=== PATIENT | female | born 1955 | race Caucasian/White ===

== ENCOUNTER 2024-09-12 11:17 | Outpatient (REF) | payer MEDICARE, SELFPAY ==
[2024-09-12 14:16] LABS: Alanine Aminotransferase 21 U/L (0-31); Albumin Level 4.3 g/dL (3.5-5.0); Alkaline Phosphatase 79 U/L (39-117); Anion Gap 10 (12-20); Aspartate Amino Transferase 21 U/L (5-31); Bilirubin Total 0.4 mg/dL (0.0-1.0); Blood Urea Nitrogen 14 mg/dL (9-16); Calcium 9.6 mg/dL (8.4-10.2); Carbon Dioxide 28 mmol/L (22-29); Chloride 106 mmol/L (96-108); Estimated Glomerular Filt Rate > 60; Glucose Random 86 mg/dL (60-115); Potassium 4.6 mmol/L (3.3-5.1); Sodium 139 mmol/L (135-145)
[2024-09-12 14:33] LABS: TSH reflex Free T4 5.03 uIU/mL (0.32-4.0)
[2024-09-12 15:08] LABS: Free T4 (Free Thyroxine) 0.69 ng/dL (0.71-1.85)
[2024-09-13 03:39] LABS: Immunoglobulin A 113 mg/dL (70-320)
[2024-09-13 21:04] LABS: Transglutaminase IgA <1.0 U/mL
[2024-09-18 11:33] LABS: ANA Pattern 2 Nuclear, Homogeneous; Anti Nuclear Antibody Pattern Nuclear, Speckled; Anti Nuclear Antibody Screen POSITIVE (NEGATIVE)
== END 2024-09-12 11:18 | disposition home or self-care (01) ==
LOC: HO.LAB 11:17
PROVIDERS: PCP Family Medicine; Visit Provider Internal Medicine
DX: R10.9 Unspecified abdominal pain (principal)
CPT/HCPCS: 36415; 80053; 82784; 84439; 84443; 86038; 86039; 86364

== ENCOUNTER 2024-10-17 11:23 | Outpatient (REF) | payer MEDICARE, SELFPAY ==
--- NOTE | ~2024-10-17 | US_ITS ---
CLINICAL HISTORY: ABD PAIN US abdomen complete Comparison: None provided Findings: The pancreas is normal. The visualized aorta and inferior vena cava are normal in caliber. Mild echogenic atherosclerotic disease of the abdominal aorta. The liver is normal in size, right lobe length is 14.6 cm. Normal in echogenicity, no discrete lesion is visualized in the imaged liver. No intrahepatic bile duct dilatation. The common duct is 5 mm in diameter. The gallbladder is normal. Negative sonographic Ann sign. The main portal vein is patent with antegrade flow. The right kidney is normal, 9.5 cm in length. The left kidney is normal, 9.0 cm in length. The spleen is normal, 8.0 cm in length. No free fluid in the abdomen. Impression: 1. No acute or sonographic finding to account for abdominal pain. 2. Atherosclerotic disease of abdominal aorta. This document has been electronically signed by: Mckenna Mooney MD on 10/17/2024 15:50:33
== END 2024-10-17 11:24 | disposition home or self-care (01) ==
LOC: HO.HMGCX 11:23
PROVIDERS: Visit Provider Internal Medicine
DX: R10.9 Unspecified abdominal pain (principal)
CPT/HCPCS: 76700

== ENCOUNTER → 2024-10-17 11:32 | Outpatient (BNV) | payer MEDICARE, SELFPAY | PROVIDERS: Visit Provider Radiology Diagnostic Radiology | DX: I70.0 Atherosclerosis of aorta (principal) | CPT/HCPCS: 76700 ==

== ENCOUNTER 2025-01-03 08:42 | Outpatient (REF) | payer MEDICARE, SELFPAY ==
--- NOTE | ~2025-01-03 | FL_ITS ---
EXAMINATION: XR FLUOROSCOPY UPPER GI WITH AIR CLINICAL INFORMATION: Abdominal pain radiates to back. COMPARISON: None available. TECHNIQUE: Routine upper GI air contrast study was performed in upright and lying position. FINDINGS: Following oral administration of thick barium and effervescent granules is normal propagation bolus from the oral cavity through the pharynx, esophagus into stomach without obstruction, narrowing or stricture. There is no intraluminal filling defect or extrinsic compression. On placing patient supine and prone lying the course, caliber and peristalsis of the stomach is normal. Mild increased gastric secretions are present. There is small gastric erosions seen throughout the stomach especially fundus and the body the stomach. No ulceration visualized. There is mild gastroesophageal reflux without hiatal hernia. FLUOROSCOPY TIME: 1 minute 46 seconds DOSE AREA PRODUCT: 905.2 uGy-m2 (microgray-meter squared) FL/FL upper GI w air IMPRESSION: Increased gastric secretions with gastric erosions suggestive of hyper acidity. Mild gastroesophageal reflux extending to upper esophagus without hiatal hernia. Electronically signed by: Sebastien Brady MD 01/03/2025 10:15 AM EDT
== END 2025-01-03 08:43 | disposition home or self-care (01) ==
LOC: HO.XRAY 08:42
PROVIDERS: Visit Provider Internal Medicine
DX: R10.9 Unspecified abdominal pain (principal)
CPT/HCPCS: 74246

== ENCOUNTER → 2025-01-03 08:44 | Outpatient (BNV) | payer MEDICARE, SELFPAY | PROVIDERS: Visit Provider Radiology Diagnostic Radiology | DX: E16.4 Increased secretion of gastrin (principal); K25.9 Gastric ulcer, unspecified as acute or chronic, without hemorrhage or perforation | CPT/HCPCS: 74246 ==

== ENCOUNTER 2025-01-14 10:07 | Outpatient (AMB) | payer MEDICARE, SELFPAY ==
--- NOTE | 2025-01-14 10:08 | MHC.OFFVIS ---
Vital Signs 01/14/25 10:09 Height 5 ft 2 in Weight 99 lb 3.328 oz BMI 18.1 BP 139/62 Blood Pressure Location Lt radial Position Sitting Pulse 62 Intake Visit Reasons: f/u abd pains - GI series results Intake Note: Lia presents in the office as a follow up for her GI series and abdominal pains. CC: no concerns just here for the follow up to her GI series. 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 Reports R lower rib pain x 1 year which radiates to the back and wraps around the abdomen. Pain can sometimes be severe enough to cause her sweating and nausea. Pain comes and goes - some days are better. Gets better when she lays down but stretching doesnt help. No change in appetite or bowel habits. Also has back pain with this but had MRI and says no spine issues. Last colo was around 7-8 years ago at [facility] - was given a 10 year recall. Has never needed an upper EGD. Former smoker. 01/03/25: Increased gastric secretions with gastric erosions suggestive of hyper acidity. Mild gastroesophageal reflux extending to upper esophagus without hiatal hernia. 01/14/25: Here for follow up post UGIS. Reports no further abd pain in almost a month. No N/V. Appetite is good. REsults of UGIS reviewed, gastritis with reflux. No HH which is primarily what the pt was worried about. PFSH Surgical History Hx of colonoscopy Family History Father Colon cancer Review of Systems Const All systems reviewed & are unremarkable except as noted in HPI and below Physical Exam Exam Exam: No apparent distress Nonicteric Abdomen soft, nondistended Alert and oriented x3, normal gait Vital Signs: Last Vital Signs Pulse 62 01/14/25 10:09 BP 139/62 01/14/25 10:09 BMI result Body Mass Index 18.1 Assessment & Plan Assessment & Plan (1) Abdominal pain: Code(s): R10.9 - Unspecified abdominal pain Category: Medical (2) Gastritis: Code(s): K29.70 - Gastritis, unspecified, without bleeding Category: Medical Plan Discussed that pain prev described is likely unrelated to gastritis. Sounds MSK. However UGIS shows gastritis so will proceed with EGD with possible bx. Famotidine 20 mg daily to be continued 8-12 weeks. Follow up after EGD Orders: Referrals GI Procedure Notification K29.70 - Gastritis, unspecified, without bleeding, R10.9 - Unspecified abdominal pain Medications: New famotidine 20 mg PO DAILY 90 tabs 0RF Coding Level of Care Code Est Pt Level 3 (97029) Diagnoses Abdominal pain R10.9 Gastritis K29.70
[2025-01-14 10:09] VITALS: BP 139/62; PULSE 62; BMI 18.1
== END 2025-01-14 10:50 | disposition home or self-care (01) ==
LOC: HO.HGI 10:08
PROVIDERS: Visit Provider Internal Medicine
DX: R10.9 Unspecified abdominal pain (principal); K29.70 Gastritis, unspecified, without bleeding
CPT/HCPCS: 99213

== ENCOUNTER → 2025-01-14 10:07 | Outpatient (BNVA) | payer MEDICARE, SELFPAY | PROVIDERS: Visit Provider Internal Medicine | DX: R10.9 Unspecified abdominal pain (principal); K29.70 Gastritis, unspecified, without bleeding | CPT/HCPCS: 99212 ==